=== PATIENT | male | born 1980 | race African-American/Black ===

== ENCOUNTER 2017-10-17 21:21 | Emergency (ER) | payer OTHER ==
[~2017-10-17] VITALS: Ht 188 cm; Wt 104.3 kg
[2017-10-17 23:00] VITALS: BP 135/75
[2017-10-18] MEDS ORDERED: IBUPROFEN600 MG ORAL (00:18)
[2017-10-18] MEDS ORDERED: CLOTRIMAZOLE15 GM TOPIC (00:47)
--- NOTE | 2017-10-18 04:23 | Emergency Room Report ---
History of Present Illness General Chief Complaint: Pain Source: Patient Present Illness HPI Patient 37-year-old male who presented after increased bilateral foot pain and swelling. Patient gradual onset of symptoms over the past few months. Patient reported having intermittent episodes with worsening itching and cracking skin. He denied any fever. He reported having previous episodes of fungal infection. He denied any or medical history. Increased pain with standing. Allergies: Coded Allergies: No Known Allergies (Unverified , 10/17/17) Patient History Past Medical History: see triage record Reviewed Nursing Documentation: PMH: Agreed, PSxH: Agreed Nursing Documentation-PMH Past Medical History: No Stated History Review of Systems All Other Systems: negative except mentioned in HPI Physical Exam Vital Signs Date Time Temp Pulse Resp B/P (MAP) Pulse Ox O2 Delivery O2 Flow Rate FiO2 10/17/17 21:40 98.0 85 14 135/75 96 Room Air 98.1 General Appearance: well appearing, no apparent distress, alert, GCS 15 Head: normocephalic, atraumatic ENT: hearing grossly normal, normal voice Neck: full range of motion, supple Respiratory: no respiratory distress, speaking full sentences Musculoskeletal: no calf tenderness Neurologic: normal inspection, alert, oriented x3, responsive, hand endband cutter III-XII nml as tested, normal gait Psychiatric: mood/affect normal Skin: other - discoloration to bilateral feet with scaling Medical Decision Making Diagnostic Impression: Primary Impression: Foot pain, bilateral ER Course Patient presented for skin rash and foot pain. Differential diagnoses include was was not limited to cellulitis, foreign body, fracture, plantar fasciitis, vascular insufficiency, sprain. Patient was noted to have evidence of fungal infection. He is given prescription for topical antifungal medications.The patient is advised to follow up with primary care doctor in 1-2 days. Patient is advised to return if any worsening condition or if any changes in status that are concerning. This report is dictated with [employer] traveling engineer software which may occasionally lead to discrepancies related to use of this software. Last Vital Signs Date Time Temp Pulse Resp B/P (MAP) Pulse Ox O2 Delivery O2 Flow Rate FiO2 10/17/17 23:52 98.0 10/17/17 23:00 85 14 135/75 96 Room Air Status: improved Disposition: HOME, SELF-CARE Condition: Stable Scripts Clotrimazole* (LOTRIMIN*) 15 Gm Cream..g. 1 APPLIC TOPIC TWICE A DAY for 28 Days, #30 GM Prov: Chuck Molina 10/18/17 Ibuprofen* (MOTRIN*) 600 Mg Tablet 600 MG ORAL Q8H Y for For Pain, #30 TAB 0 Refills Prov: Chuck Molina 10/18/17 Referrals: ZACH REZA,REFERRING (PCP) Patient Instructions: Plantar Fasciitis Chuck Molina Oct 18, 2017 04:23
--- NOTE | 2017-10-18 11:33 | Diagnostic Imaging Report ---
Indication: Foot pain Technique: 3 views right foot Comparison: none Findings: No acute fractures. No dislocations. Joint spaces are preserved Impression: No acute process
--- NOTE | 2017-10-18 11:34 | Diagnostic Imaging Report ---
Indication: Pain Technique: 3 views left foot Comparison: none Findings: No acute fractures. No dislocations. The joint spaces are preserved. Impression: Negative
== END 2017-10-18 00:50 | disposition home or self-care (01) ==
LOC: MERGE 23:08 → EMR 23:08
DX: M79.672 Pain in left foot (principal); M79.671 Pain in right foot
CPT/HCPCS: 99284